=== PATIENT | female | born 1950 | race Caucasian/White ===

== ENCOUNTER 2024-11-22 10:01 | Observation (INO) | payer MEDICARE ==
[~2024-11-22] VITALS: Ht 167.6 cm; Wt 49.9 kg
[2024-11-22] VITALS (9 sets, daily range): BP systolic 142–151; BP diastolic 52–75; PULSE 64–85; RESP 17–18; TEMP 98–98.1; O2SAT 98–100
[~2024-11-22 10:01] MED LIST: CEPHALEXIN500 MG PO; Multivitamins/Minerals PO; POTASSIUM CHLO10 ME1 PO; SIMETHICONE80 MG PO
[2024-11-22] MEDS ORDERED: SODIUM CHLORIDE FLUSH 10 ML SYR IV PRN (10:15)
[2024-11-22 10:53] LABS: BASOPHILS # (AUTO) 0.1 (0.0-0.1); BASOPHILS % 1.1 % (0.0-1.0); EOSINOPHILS # (AUTO) 0.5 (0.0-0.4); EOSINOPHILS % 7.2 % (0.0-6.0); HEMATOCRIT 35.6 % (34.2-44.1); HEMOGLOBIN 11.4 g/dL (12.0-16.0); LYMPHOCYTES # (AUTO) 2.6 (1.0-3.2); LYMPHOCYTES % 36.5 % (18.0-39.1); MEAN CORPUSCULAR HEMOGLOBIN 31.8 pg (28-32); MEAN CORPUSCULAR VOLUME 99.2 fL (81-99); MONOCYTES # (AUTO) 0.7 (0.2-0.8); MONOCYTES % 10.1 % (4.4-11.3); NEUTROPHILS # (AUTO) 3.2 (2.1-6.9); NEUTROPHILS % 44.8 % (38.7-80.0); PLATELET COUNT 370 x10e3/uL (140-360); RED BLOOD COUNT 3.59 x10e6/uL (3.6-5.1); RED CELL DISTRIBUTION WIDTH 13.9 % (11.7-14.4)
[2024-11-22 11:21] LABS: ALANINE AMINOTRANSFERASE 18 IU/L (0-55); ALBUMIN 3.5 g/dL (3.5-5.0); ALBUMIN/GLOBULIN RATIO 0.9 (0.8-2.0); ALKALINE PHOSPHATASE 90 IU/L (40-150); ANION GAP 15.7 mmol/L (8-16); BILIRUBIN,TOTAL 0.2 mg/dL (0.2-1.2); BLOOD UREA NITROGEN 21 mg/dL (7-26); BUN/CREATININE RATIO 21 (6-25); CALCIUM 10.3 mg/dL (8.4-10.2); CARBON DIOXIDE 26 mmol/L (22-29); CHLORIDE 105 mmol/L (98-107); EST GLOMERULAR FILTRATION RATE 58 ML/MIN (>=60); GLUCOSE 90 mg/dL (74-118); POTASSIUM 4.7 mmol/L (3.5-5.1); SODIUM 142 mmol/L (136-145); TOTAL PROTEIN 7.6 g/dL (6.5-8.1)
[2024-11-22 11:29] LABS: TROPONIN I < 0.001 ng/mL (0-0.300)
[2024-11-22 11:38] LABS: CLARITY,URINE CLEAR (CLEAR); COLOR,URINE YELLOW (YELLOW)
[2024-11-22 11:39] LABS: BACTERIA,URINE FEW /HPF; BILIRUBIN,URINE NEGATIVE (NEGATIVE); EPITHELIAL CELLS,URINE FEW /LPF; GLUCOSE, URINE NEGATIVE (NEGATIVE); KETONES,URINE NEGATIVE (NEGATIVE); LEUKOCYTE ESTERASE ,URINE TRACE (NEGATIVE); NITRITE,URINE NEGATIVE (NEGATIVE); PH,URINE 7 (5 - 7); PROTEIN,URINE DIPSTICK NEGATIVE (NEGATIVE); RBC,URINE 0-5 /HPF (0-5); URINE UROBILINOGEN 0.2 mg/dL (0.2 - 1)
[2024-11-22] MEDS ORDERED: SODIUM CHLORIDE FLUSH 10 ML SYR INJ PRN (12:45)
[2024-11-22] MEDS ORDERED: ONDANSETRON HCL INJ 2MG/ML 2ML 2 MG/ML VIAL IV PRN (12:45)
[2024-11-22] MEDS ORDERED: HYDRALAZINE HCL 20 MG/ML VIAL IV PRN ×2 (16:00→16:30)
[2024-11-22] MEDS ORDERED: ACETAMINOPHEN 325 MG TAB PO PRN (16:30)
[2024-11-22] MEDS: LACTATED RINGER'S 1,000 ML INJ ONE (18:19)
[2024-11-22] MEDS: DOCUSATE SODIUM 100 MG CAP PO SCH (18:19)
[2024-11-22] MEDS: FAMOTIDINE 20 MG/2 ML VIAL IV SCH (18:19)
[2024-11-22] MEDS: METHYLPREDNISOLONE SOD SUCC 40 MG/ML VIAL 1ML IV ONE ×2 (18:48→19:00)
[2024-11-22] MEDS: POLYETHYLENE GLYCOL 3350 17 GM PACK PO PRN (19:00)
[2024-11-22] MEDS: ASPIRIN 81 MG CHEW TAB PO ONE ×2 (19:00→20:40)
[2024-11-23] VITALS: BP 119/52; PULSE 74; RESP 18; TEMP 98.2; O2SAT 97
[2024-11-23 00:28] LABS: TROPONIN I 0.006 ng/mL (0-0.300)
[2024-11-23 04:00] VITALS: BP 103/54; PULSE 80; RESP 16; TEMP 98.1; O2SAT 98
[2024-11-23] MEDS ORDERED: IOPAMIDOL 370 MG/ML 100 ML INFUS..BTL INJ ONE (05:46)
[2024-11-23 06:19] LABS: BASOPHILS % 0.5 % (0.0-1.0); HEMATOCRIT 33.4 % (34.2-44.1); HEMOGLOBIN 10.8 g/dL (12.0-16.0); LYMPHOCYTES # (AUTO) 1.1 (1.0-3.2); LYMPHOCYTES % 17.3 % (18.0-39.1); MEAN CORPUSCULAR HEMOGLOBIN 31.5 pg (28-32); MEAN CORPUSCULAR HGB CONC 32.3 g/dL (31-35); MEAN CORPUSCULAR VOLUME 97.4 fL (81-99); MONOCYTES # (AUTO) 0.2 (0.2-0.8); MONOCYTES % 2.6 % (4.4-11.3); NEUTROPHILS # (AUTO) 5.2 (2.1-6.9); PLATELET COUNT 347 x10e3/uL (140-360); RED BLOOD COUNT 3.43 x10e6/uL (3.6-5.1); RED CELL DISTRIBUTION WIDTH 13.9 % (11.7-14.4); WHITE BLOOD COUNT 6.59 x10e3/uL (4.8-10.8)
[2024-11-23 06:37] LABS: CHOL/HDL RATIO 2.5 (3.0-3.6); MAGNESIUM 1.9 MG/DL (1.3-2.1); PHOSPHORUS 3.1 MG/DL (2.3-4.7)
[2024-11-23 06:39] LABS: ALBUMIN 3.2 g/dL (3.5-5.0); ALBUMIN/GLOBULIN RATIO 0.9 (0.8-2.0); ANION GAP 13.2 mmol/L (8-16); BILIRUBIN,TOTAL 0.3 mg/dL (0.2-1.2); CALCIUM 8.7 mg/dL (8.4-10.2); CREATININE, SERUM 0.93 mg/dL (0.57-1.11); POTASSIUM 4.2 mmol/L (3.5-5.1); TOTAL PROTEIN 6.8 g/dL (6.5-8.1)
[2024-11-23 06:49] LABS: TROPONIN I 0.001 ng/mL (0-0.300)
[2024-11-23 07:03] LABS: FREE T4 (FREE THYROXINE) 0.91 ng/dL (0.8-1.8); THYROID STIMULATING HORMONE 0.634 uIU/mL (0.350-4.940)
[2024-11-23 07:11] VITALS: PULSE 87; RESP 18; O2SAT 97
[2024-11-23 08:00] VITALS: BP 121/59; PULSE 75; RESP 17; TEMP 98.1; O2SAT 100
[2024-11-23 08:10] VITALS: BP 121/59; PULSE 75; RESP 17; TEMP 98.1; O2SAT 100
[2024-11-23 12:00] VITALS: BP 116/59; PULSE 86; RESP 17; TEMP 98.5; O2SAT 97
[2024-11-23] MEDS ORDERED: ONE DAILY ESSE1 EACH PO (12:38)
[2024-11-24] MEDS ORDERED: NON-FORMULARY MEDICATION ([Multivitamins/Minerals] 1 TAB) PO SCH (09:00)
== END 2024-11-23 16:05 | disposition home or self-care (01) ==
LOC: ER 10:08 → ERHOLD 12:46 → MED/SURG3 14:59
PROVIDERS: ADMIT Internal Medicine; ATTEND Internal Medicine
DX: R06.89 Other abnormalities of breathing (principal); N17.9 Acute kidney failure, unspecified; E86.0 Dehydration; R07.9 Chest pain, unspecified; J44.9 Chronic obstructive pulmonary disease, unspecified; G93.41 Metabolic encephalopathy; I10 Essential (primary) hypertension; E83.52 Hypercalcemia; R82.90 Unspecified abnormal findings in urine; S51.011A Laceration without foreign body of right elbow, initial encounter; F32.A Depression, unspecified; F03.90 Unspecified dementia, unspecified severity, without behavioral disturbance, psychotic disturbance, mood disturbance, and anxiety; D75.839 Thrombocytosis, unspecified; E43 Unspecified severe protein-calorie malnutrition; Z68.1 Body mass index [BMI] 19.9 or less, adult; R62.7 Adult failure to thrive; D64.9 Anemia, unspecified
CPT/HCPCS: 36415 ×2; 71045; 71260; 80053 ×2; 80061; 81001; 82550 ×2; 82607; 83036; 83735; 83880; 84100; 84439; 84443; 84484 ×2; 85025 ×2; 87086; 93005; 94760; 94799 ×2; 97110; 97116; 97161; 99284; G0378 ×2; J0456 ×2; J0696; J1308 ×2; J2919; J7050 ×2; J7121; Q9967